=== PATIENT | female | born 1970 | race Caucasian/White ===

== ENCOUNTER 2016-06-10 22:28 | Inpatient (IN) | payer MEDICAID ==
[~2016-06-10] VITALS: Ht 170.2 cm; Wt 81.0 kg
[~2016-06-10 22:28] MED LIST: CARI350 PO; CITA10TA68 PO; CLON1 PO; LORA2TAB2 PO; VENL75 PO; ZOLP10 PO
[2016-06-10 23:13] VITALS: BP 129/77
[2016-06-11 00:01] VITALS: BP 123/83
[2016-06-11] MEDS: ZOLPIDEM TARTRATE 10 MG TABLET PO PRN ×2 (00:15→20:22)
[2016-06-11] MEDS: LORazepam 2 MG TABLET PO PRN ×3 (00:15→17:01)
[2016-06-11 08:21] LABS: BASOPHILS % (AUTO) 0.6 % (0.0-2.0); HEMATOCRIT 37.7 % (36-46); HEMOGLOBIN 12.5 g/dL (12.0-16.0); LYMPHOCYTES # (AUTO) 1.7 K/uL (1.0-4.8); LYMPHOCYTES % (AUTO) 40.9 % (22.0-44.0); MEAN CORPUSCULAR HEMOGLOBIN 30.8 pg (26.0-34.0); MEAN CORPUSCULAR HGB CONC 33.2 G/dL (31.0-37.0); MEAN CORPUSCULAR VOLUME 93 fL (80-100); MONOCYTES # (AUTO) 0.3 K/uL (0.1-1.0); MONOCYTES % (AUTO) 7.2 % (2.0-9.0); NEUTROPHILS # (AUTO) 2.1 K/uL (1.8-7.7); NEUTROPHILS % (AUTO) 50.3 % (40.0-70.0); PLATELET COUNT (AUTO) 142 K/uL (150-450); RED BLOOD CELL COUNT(AUTO) 4.07 MIL/uL (4.00-5.20); RED CELL DISTRIBUTION WIDTH 14.8 % (11.5-14.5); WHITE BLOOD COUNT (AUTO) 4.2 K/uL (4.5-11.0)
[2016-06-11 08:30] VITALS: BP 114/65
[2016-06-11 08:36] LABS: HEMOGLOBIN A1C 5.6 % (4.5-6.2)
[2016-06-11 09:00] LABS: ALANINE AMINOTRANSFERASE 48 U/L (12-78); ALBUMIN 3.6 g/dL (3.4-5.0); ANION GAP 9 mmol/L (8-16); ASPARTATE AMINOTRANSFERASE 54 U/L (15-37); BILIRUBIN,TOTAL 0.7 mg/dL (0.1-1.0); CARBON DIOXIDE 27 mmol/L (22-29); CHLORIDE 107 mmol/L (98-107); CHOL/HDL RATIO 1.9 (3.9-5.7); CREATININE 0.75 mg/dL (0.60-1.30); GLOMERULAR FILTR. RATE CALC > 60 mL/min (>60); POTASSIUM 3.9 mmol/L (3.5-5.1); SODIUM SERUM 143 mmol/L (136-145); THYROID STIMULATING HORMONE 0.45 uIU/mL (0.36-3.74); TOTAL PROTEIN, SERUM 6.9 g/dL (6.4-8.2); UREA NITROGEN, BLOOD 17 mg/dL (7-18)
[2016-06-11 11:49] VITALS: BP 121/73
[2016-06-11] MEDS: IBUPROFEN 600 MG TABLET PO PRN (11:49)
[2016-06-11 16:00] VITALS: BP 116/75
[2016-06-11 17:01] VITALS: BP 125/81
[2016-06-11] MEDS: ACETAMINOPHEN 325 MG TABLET PO PRN (17:01)
[2016-06-11 18:01] VITALS: BP 127/75
[2016-06-11] MEDS ORDERED: ALBUTEROL SULFATE HFA 90 MCG/PUFF 8 GM INHALER IH PRN (21:15)
[2016-06-11] MEDS ORDERED: PETROLATUM,WHITE 71 GM JELLY TP PRN (21:15)
[2016-06-11] MEDS ORDERED: LOPERAMIDE HCL 2 MG CAPSULE PO PRN (21:15)
[2016-06-11] MEDS ORDERED: MAGNESIUM HYDROXIDE SUSPENSION 30 ML UDCUP PO PRN (21:15)
[2016-06-11] MEDS ORDERED: CloNIDine HCL 0.1 MG TABLET PO PRN (21:15)
[2016-06-11] MEDS ORDERED: BACITRACIN 28.4 GM OINTMENT TP PRN (21:15)
[2016-06-11] MEDS ORDERED: MAG HYDROX/AL HYDROX/SIMETH ES 30 ML SUSPENSION UDCUP PO PRN (21:15)
[2016-06-11] MEDS ORDERED: BENZOCAINE/MENTHOL LOZENGE MM PRN (21:15)
[2016-06-11] MEDS ORDERED: ONDANSETRON HCL 4 MG TABLET PO PRN (21:15)
[2016-06-11] MEDS ORDERED: IBUPROFEN 600 MG TABLET PO PRN (21:15)
[2016-06-12 03:45] VITALS: BP 119/78
[2016-06-12] MEDS: OMEPRAZOLE 20 MG CAPSULE PO SCH (08:27)
[2016-06-12] MEDS: GABAPENTIN 300 MG CAPSULE PO SCH ×3 (08:28→16:13)
[2016-06-12] MEDS: DOCUSATE SODIUM 100 MG CAPSULE PO SCH (08:28)
[2016-06-12] MEDS: CITALOPRAM HYDROBROMIDE 20 MG TABLET PO SCH (08:29)
[2016-06-12 08:37] VITALS: BP 139/85
[2016-06-12 09:57] LABS: CHOL/HDL RATIO 2.1 (3.9-5.7); THYROID STIMULATING HORMONE 0.27 uIU/mL (0.36-3.74)
[2016-06-12 16:01] VITALS: BP 137/79
[2016-06-12] MEDS: LORazepam 2 MG TABLET PO PRN (16:13)
[2016-06-13 01:56] VITALS: BP 108/77
[2016-06-13] MEDS: IBUPROFEN 600 MG TABLET PO PRN ×2 (01:58→21:44)
[2016-06-13] MEDS: LORazepam 2 MG TABLET PO PRN ×4 (01:58→21:44)
[2016-06-13 08:21] VITALS: BP 114/65
[2016-06-13] MEDS: OMEPRAZOLE 20 MG CAPSULE PO SCH (08:36)
[2016-06-13] MEDS: CITALOPRAM HYDROBROMIDE 20 MG TABLET PO SCH (08:36)
[2016-06-13] MEDS: DOCUSATE SODIUM 100 MG CAPSULE PO SCH (08:36)
[2016-06-13] MEDS: GABAPENTIN 300 MG CAPSULE PO SCH ×3 (08:36→16:37)
[2016-06-13 16:27] VITALS: BP 109/68
[2016-06-13 21:40] VITALS: BP 118/70
[2016-06-14 00:03] VITALS: BP 129/79
[2016-06-14] MEDS: ZOLPIDEM TARTRATE 10 MG TABLET PO PRN ×2 (00:10→21:01)
[2016-06-14] MEDS: ACETAMINOPHEN 325 MG TABLET PO PRN (00:11)
[2016-06-14] MEDS: IBUPROFEN 600 MG TABLET PO PRN (05:50)
[2016-06-14] MEDS: LORazepam 2 MG TABLET PO PRN ×4 (05:50→20:36)
[2016-06-14 05:51] VITALS: BP 127/77
[2016-06-14] MEDS: DOCUSATE SODIUM 100 MG CAPSULE PO SCH (08:20)
[2016-06-14] MEDS: OMEPRAZOLE 20 MG CAPSULE PO SCH (08:20)
[2016-06-14] MEDS: CITALOPRAM HYDROBROMIDE 20 MG TABLET PO SCH (08:20)
[2016-06-14] MEDS: GABAPENTIN 300 MG CAPSULE PO SCH ×3 (08:20→16:43)
[2016-06-14 09:03] VITALS: BP 125/65
[2016-06-14 16:00] VITALS: BP 115/79
[2016-06-14] MEDS: HALOPERIDOL 5 MG TABLET PO PRN (16:43)
[2016-06-15 00:47] VITALS: BP 112/65
[2016-06-15] MEDS: IBUPROFEN 600 MG TABLET PO PRN (00:50)
[2016-06-15] MEDS: HALOPERIDOL 5 MG TABLET PO PRN ×2 (00:50→08:28)
[2016-06-15 04:11] VITALS: BP 103/60
[2016-06-15] MEDS: ACETAMINOPHEN 325 MG TABLET PO PRN (04:11)
[2016-06-15] MEDS: LORazepam 2 MG TABLET PO PRN ×2 (04:11→10:04)
[2016-06-15 08:15] VITALS: BP 130/72
[2016-06-15] MEDS: OMEPRAZOLE 20 MG CAPSULE PO SCH (08:25)
[2016-06-15] MEDS: GABAPENTIN 300 MG CAPSULE PO SCH ×2 (08:25→12:48)
[2016-06-15] MEDS: CITALOPRAM HYDROBROMIDE 20 MG TABLET PO SCH (08:25)
[2016-06-15] MEDS: DOCUSATE SODIUM 100 MG CAPSULE PO SCH (08:26)
[2016-06-15] MEDS ORDERED: GABA-531 PO (13:29)
[2016-06-15] MEDS ORDERED: CITA20TA9 PO (13:30)
[2016-06-15] MEDS ORDERED: DSS100 PO (13:31)
[2016-06-15] MEDS ORDERED: OMEP20 PO (13:31)
== END 2016-06-15 14:25 | disposition home or self-care (01) | DRG 751 ==
LOC: B3A 22:58 → EDSTATUS 23:05 → B3A 06-13 10:58
PROVIDERS: ADMIT Psychiatry & Neurology Psychiatry; ATTEND Psychiatry & Neurology Psychiatry
DX: F33.2 Major depressive disorder, recurrent severe without psychotic features (principal); R45.851 Suicidal ideations; F41.9 Anxiety disorder, unspecified; F15.90 Other stimulant use, unspecified, uncomplicated; M54.2 Cervicalgia; M25.562 Pain in left knee; M25.561 Pain in right knee; F10.10 Alcohol abuse, uncomplicated; Z79.899 Other long term (current) drug therapy; Z71.51 Drug abuse counseling and surveillance of drug abuser; Z71.41 Alcohol abuse counseling and surveillance of alcoholic; Z91.5 Personal history of self-harm
CPT/HCPCS: 82306; 83036; 84439; 84443